=== PATIENT | male | born 1975 | race Caucasian/White ===

== ENCOUNTER 2021-05-09 11:11 | Emergency (ER) | payer BC ==
[2021-05-09 11:27] VITALS: TEMP 98.4; BMI 26.6
[2021-05-09] MEDS ORDERED: CASIRIVIMAB/IMDEVIMAB 10 ML in SODIUM CHLORIDE 100 ML IVPB ONE (12:21)
[2021-05-09 14:41] VITALS: BP 114/72; PULSE 78
== END 2021-05-09 14:57 | disposition home or self-care (01) ==
LOC: JCOVINFU 11:11
DX: U07.1 COVID-19 (principal)
CPT/HCPCS: 99283-25; Q0240